=== PATIENT | female | born 1975 | race Caucasian/White ===

== ENCOUNTER 2017-04-04 13:09 | Outpatient (CLI) | payer OTHER ==
[~2017-04-04 13:09] MED LIST: CELEBREX100 MG PO; ORPH100T PO; TUSSI PRES-B L120 M1 PO; ZITHROMAX TRI-500 MG PO
== END 2017-04-04 13:32 | disposition home or self-care (01) ==
LOC: MAMO-SONO 13:09
DX: N64.4 Mastodynia (principal)